=== PATIENT | female | born 1935 | race Asian ===

== ENCOUNTER 2020-12-31 00:08 | Emergency (ER) | payer OTHER ==
[~2020-12-31] VITALS: Ht 154.9 cm; Wt 49.9 kg
[2020-12-31 00:21] VITALS: BP_SYST 188
--- NOTE | 2020-12-31 00:24 | NUR ---
Patient to ER bed to gown for evaluation. Side rails up. Report given to tia.
--- NOTE | 2020-12-31 00:25 | NUR ---
ER at bedside examining patient.
--- NOTE | 2020-12-31 00:28 | NUR ---
85 y/o female here for elevated BP w/ dizziness and nausea x today. Pt reports taking blood pressure medications Valsartan 160mg, almodipine 5 mg. Pt reports taking extra of her medication due to her symptoms. Denies CP, FEVER, SOB or Palpations.
--- NOTE | 2020-12-31 00:41 | NUR ---
dough mixer helper at bedside.
[2020-12-31 01:28] LABS: ANION GAP 11 (5-15); CALCIUM 8.4 mg/dL (8.4-11.0); CHLORIDE 88 mmol/L (98-107); CREATININE 0.68 mg/dL (0.55-1.30); GLUCOSE 127 mg/dL (70-99); POTASSIUM 3.6 mmol/L (3.5-5.1); SODIUM SERUM 124 mmol/L (136-145); UREA NITROGEN, BLOOD 15 mg/dL (8-21)
--- NOTE | 2020-12-31 01:28 | NUR ---
Pt taken to CT via adamrveda accompained by Tigre
[2020-12-31 01:32] LABS: HEMATOCRIT 35.9 % (36-48); HEMOGLOBIN 11.9 g/dL (12.0-16.0); MEAN CORPUSCULAR HEMOGLOBIN 30 pg (27-31); MEAN CORPUSCULAR HGB CONC 33 % (32-36); MEAN CORPUSCULAR VOLUME 91 fL (79.0-98.0); RED BLOOD CELL COUNT(AUTO) 3.96 MIL/uL (4.2-6.2)
[2020-12-31 01:33] LABS: ALANINE AMINOTRANSFERASE 57 U/L (12-78); ALBUMIN 3.9 g/dL (3.4-4.8); ASPARTATE AMINOTRANSFERASE 38 U/L (10-37); BASOPHILS # (AUTO) 0.1 K/uL (0.0-0.2); EOSINOPHILS # (AUTO) 0.1 K/uL (0.0-0.4); EOSINOPHILS % (AUTO) 0.8 % (0.0-4.0); LYMPHOCYTES # (AUTO) 1.4 K/uL (1.0-5.5); LYMPHOCYTES % (AUTO) 14.2 % (20.5-51.5); NEUTROPHILS # (AUTO) 7.4 K/uL (1.8-7.7); PLATELET COUNT (AUTO) 243 K/uL (130-430); RED CELL DISTRIBUTION WIDTH 14.4 % (9.0-15.0); TOTAL BILIRUBIN 0.6 mg/dL (0.0-1.0)
[2020-12-31] MEDS ORDERED: NACL 0.9% 1,000 ML IV ONE (02:30)
[2020-12-31] MEDS ORDERED: cefTRIAXone 1 GM IVPB PREMIX 50 ML IV ONE (03:00)
[2020-12-31] MEDS ORDERED: AZITHROMYCIN 250 MG TABLET PO ONE (03:00)
--- NOTE | 2020-12-31 03:20 | NUR ---
KAREN sent to lab
--- NOTE | 2020-12-31 03:50 | NUR ---
Pt assisted to restroom
--- NOTE | 2020-12-31 05:21 | NUR ---
Patient to be transferred to [place]. Is being transferred due to higher level of care. Receiving facility has accepting physician and available space. ER physician has signed transfer form. Patient or responsible constitution party has agreed to transfer and signed form. Patient belongings inventoried and will be sent with patient. Copy of nursing notes, lab reports, EKG, Physicians Orders and X-rays to be sent with patient. Report called to Sharonda at receiving facility. Receiving physician is Dr Land. [facility] has been called for transfer. ETA is 0600.
[2020-12-31 05:57] VITALS: BP_SYST 151
== END 2020-12-31 05:57 | disposition home or self-care (01) ==
LOC: SED 00:08
DX: E87.1 Hypo-osmolality and hyponatremia (principal); J18.9 Pneumonia, unspecified organism; Z88.6 Allergy status to analgesic agent; Z20.822 Contact with and (suspected) exposure to COVID-19
CPT/HCPCS: 36415; 70450; 71045; 76376; 80053; 82550; 83605; 83880; 84484; 85025; 87040; 87426; 93005; 96361; 96365; 99285; J0696; J7030; Q0144

== ENCOUNTER 2023-05-07 17:40 | Emergency (ER) | payer OTHER ==
[~2023-05-07] VITALS: Ht 152.4 cm; Wt 65.8 kg
[2023-05-07 18:01] VITALS: BP_SYST 125
--- NOTE | 2023-05-07 19:45 | NUR ---
PT BIB FROM HOME C/O ABD DISTENTION AND PAIN THAT HAS BEEN WORSENING X1 WEEK. PT DENIES NAUSEA AND VOMITING. PT STATES BOWEL MOVEMENTS ARE SOLID AND SMALL FEELS CONSTIPATED. PT STATES CANNOT EAT. PT HX OF HTN. PT RESTING IN BED WITH RAILS UP VSS
[2023-05-07 19:52] LABS: BASOPHILS # (AUTO) 0.1 K/uL (0.0-0.2); EOSINOPHILS # (AUTO) 0.1 K/uL (0.0-0.4); EOSINOPHILS % (AUTO) 1.2 % (0.0-4.0); HEMATOCRIT 35.3 % (36-48); HEMOGLOBIN 11.9 g/dL (12.0-16.0); LYMPHOCYTES # (AUTO) 0.6 K/uL (1.0-5.5); MEAN CORPUSCULAR HEMOGLOBIN 30 pg (27-31); MEAN CORPUSCULAR HGB CONC 34 % (32-36); MEAN CORPUSCULAR VOLUME 90 fL (79.0-98.0); MONOCYTES # (AUTO) 0.8 K/uL (0.0-1.0); MONOCYTES % (AUTO) 11.8 % (1.7-9.3); NEUTROPHILS # (AUTO) 5.2 K/uL (1.8-7.7); PLATELET COUNT (AUTO) 289 K/uL (130-430); RED BLOOD CELL COUNT(AUTO) 3.94 MIL/uL (4.2-6.2); RED CELL DISTRIBUTION WIDTH 14.9 % (9.0-15.0); WHITE BLOOD COUNT (AUTO) 6.7 K/uL (4.8-10.8)
[2023-05-07 19:58] LABS: BILIRUBIN,URINE NEGATIVE (NEGATIVE); BLOOD, URINE NEGATIVE (NEGATIVE); CLARITY/URINE CLEAR (CLEAR); COLOR,URINE YELLOW (YELLOW); GLUCOSE,URINE NEGATIVE (NEGATIVE); KETONES,URINE 3+ (NEGATIVE); LEUKOCYTE ESTERASE ,URINE TRACE (NEGATIVE); NITRITE, URINE NEGATIVE (NEGATIVE); PROTEIN URINE NEGATIVE (NEGATIVE); UROBILINOGEN,URINE 0.2 (0.2-1.0)
[2023-05-07 20:13] LABS: ALBUMIN 2.8 g/dL (3.4-4.8); ANION GAP 12 (5-15); ASPARTATE AMINOTRANSFERASE 70 U/L (10-37); CALCIUM 8.2 mg/dL (8.4-11.0); CHLORIDE 96 mmol/L (98-107); CREATININE 0.65 mg/dL (0.55-1.30); GLUCOSE 68 mg/dL (70-99); LIPASE 91 U/L (73-393); TOTAL BILIRUBIN 0.6 mg/dL (0.0-1.0); UREA NITROGEN, BLOOD 12 mg/dL (8-21)
--- NOTE | 2023-05-07 20:15 | NUR ---
ER at bedside examining patient.
[2023-05-07 20:20] LABS: BACTERIA,URINE FEW /HPF (None Seen)
[2023-05-07 20:29] LABS: ALANINE AMINOTRANSFERASE 22 U/L (12-78)
--- NOTE | 2023-05-07 21:05 | NUR ---
ER at bedside examining patient.
[2023-05-07] MEDS ORDERED: POTA-178 PO (21:07)
[2023-05-07] MEDS ORDERED: FURO40TA5 PO (21:07)
[2023-05-07] MEDS ORDERED: CEPH-548 PO (21:11)
[2023-05-07 21:31] VITALS: BP_SYST 125
--- NOTE | 2023-05-07 21:31 | NUR ---
Patient given written and verbal discharge instructions and verbalizes understanding. ER MD discussed with patient the results and treatment provided. Patient in stable condition. ID arm band removed. IV catheter removed intact and dressing applied, no active bleeding. Rx of CEPHALEXIN FUROSEMIDE K DUR given. Patient educated on ACITES, UTI and to follow up with PMD. Pain Scale . Opportunity for questions provided and answered. Medication side effect fact sheet provided.
== END 2023-05-07 21:31 | disposition home or self-care (01) ==
LOC: SED 17:40
DX: N30.00 Acute cystitis without hematuria (principal); R18.8 Other ascites; E78.5 Hyperlipidemia, unspecified; Z87.738 Personal history of other specified (corrected) congenital malformations of digestive system; Z88.6 Allergy status to analgesic agent; Z79.899 Other long term (current) drug therapy
CPT/HCPCS: 36415; 76376; 80053; 81000; 83690; 85025; 99284